=== PATIENT | female | born 1990 | race Caucasian/White ===

== ENCOUNTER → 2018-04-09 07:54 | Outpatient (CLI) | payer OTHER, SELFPAY ==
[2018-04-12 18:09] LABS: HPV Reflexed? NOT INDICATED
== END ==
PROVIDERS: Visit Provider Obstetrics & Gynecology
DX: Z12.4 Encounter for screening for malignant neoplasm of cervix (principal)
CPT/HCPCS: 88175; G0145

== ENCOUNTER → 2018-05-24 16:39 | Outpatient (CLI) | payer OTHER, SELFPAY ==
[2018-05-24 19:31] LABS: Chlamydia Trachomatis by PCR Negative (Negative); Neisserai gonorrhoeae by PCR Negative (Negative); Probe Check PASS; Sample Adequacy Control PASS; Specimen Processing Control PASS
== END ==
PROVIDERS: Referring Provider Obstetrics & Gynecology; Visit Provider Obstetrics & Gynecology
DX: Z11.3 Encounter for screening for infections with a predominantly sexual mode of transmission (principal)
CPT/HCPCS: 87491; 87591

== ENCOUNTER → 2018-06-20 16:14 | Outpatient (CLI) | payer OTHER, SELFPAY | PROVIDERS: Visit Provider Obstetrics & Gynecology | DX: O31.1 Continuing pregnancy after spontaneous abortion of one fetus or more (principal); Z3A.00 Weeks of gestation of pregnancy not specified | CPT/HCPCS: 36415; 86900 ==

== ENCOUNTER → 2019-05-06 | Outpatient (CLI) | payer OTHER, SELFPAY ==
[2019-05-06 19:51] LABS: Chlamydia Trachomatis by PCR Negative (Negative); Neisserai gonorrhoeae by PCR Negative (Negative); Probe Check PASS; Sample Adequacy Control PASS; Specimen Processing Control PASS
== END | disposition home or self-care (01) ==
LOC: LABSPEC 16:01
PROVIDERS: Visit Provider Advanced Practice Midwife
DX: Z34.81 Encounter for supervision of other normal pregnancy, first trimester (principal)
CPT/HCPCS: 87491; 87591

== ENCOUNTER → 2019-05-22 | Outpatient (CLI) | payer OTHER, SELFPAY ==
[2019-05-22 17:17] LABS: Absolute Lymphocyte Count 2.16 X10^3/uL (0.83-4.51); Basophil# 0.02 X10^3/uL; Basophil% 0.3 % (0-1); Eosinophil# 0.06 X10^3/uL; Eosinophils% 0.8 % (0-5); Hematocrit 37.9 % (37-47); Hemoglobin 12.9 g/dL (12.0-15.0); Lymphocyte # 2.16 X10^3/ul (4.0); Lymphocyte % 27.3 % (19-41); Mean Corpuscular Hgb 31.5 pg (27.0-32.0); Mean Corpuscular Volume 92.4 fL (81-99); Mean Platelet Vol. 9.9 fl (6.2-12.0); Monocyte% 7.6 % (0-10); NRBC Flagged by Analyzer 0 % (0-5); Neutrophil # 5.04 X10^3/uL (2.7-7.7); Neutrophil % 63.5 % (47-70); Platelet Count 255 K/mm3 (150-450); RBC Distribution Width CV 11.8 % (11.6-14.6); RBC Distribution Width SD 39.7 fl (35.1-43.9); White Blood Count 7.9 K/mm3 (4.4-11.0)
[2019-05-22 17:43] LABS: Amphetamine Urine VISTA NEGATIVE (<1000 ng/mL); Barbiturate Urine VISTA NEGATIVE (< 200 ng/mL); Benzodiazepine Urine VISTA NEGATIVE (< 200 ng/mL); Cocaine Urine VISTA NEGATIVE (< 300 ng/mL); Ecstacy Urine VISTA NEGATIVE (< 500 ng/mL); Methadone Urine VISTA NEGATIVE (< 300 ng/mL); PCP Urine VISTA NEGATIVE (< 25 ng/mL); THC Urine VISTA NEGATIVE (< 50 ng/mL); Vista UDS pH Range 7
[2019-05-22 17:54] LABS: Color, Urine Yellow (Yellow); Glucose, Dipstick Normal (Normal); Ketone-Dipstick Negative (Negative); Leukocyte Esterase-Dipstick Negative /ul (Negative); Nitrite-Dipstick Negative (Negative); Occult Blood-Urine Negative /ul (Negative); Protein-Dipstick Negative (Negative); Specific Gravity, Urine 1.005 (1.002-1.030); Urine Bilirubin Dipstick Negative (Negative); Urine Clarity Sl. Cloudy (Clear); Urine Urobilinogen Normal (Normal)
[2019-05-23 02:41] LABS: Prenatal RPR NONREACTIVE (NONREACTIVE)
[2019-05-23 09:14] LABS: HIV - WCH Non-Reactive (Nonreactive); Hepatitis B Surface Antigen Non-Reactive (Nonreactive); Hepatitis C Antibody Non-Reactive (Nonreactive); Rubella IgG 141.2 IU/mL
[2019-05-24 00:10] LABS: Vitamin D,25 Hydroxy 22.9 ng/mL (29.95-100.01)
[2019-05-26 13:43] LABS: V-Zoster IgG (Immunity) < 135 index (Immune >165)
== END | disposition home or self-care (01) ==
LOC: WOBLAB 15:55
PROVIDERS: Visit Provider Advanced Practice Midwife
DX: Z34.81 Encounter for supervision of other normal pregnancy, first trimester (principal)
CPT/HCPCS: 36415; 80307; 81002; 82306; 84443; 85025; 86703; 86762; 86787; 86803; 87340

== ENCOUNTER → 2019-09-15 09:01 | Outpatient (CLI) | payer BC, SELFPAY ==
[2019-09-15 11:10] LABS: Glucose Challenge Gest 1H 50g 88 mg/dL (70-140)
[2019-09-15 11:21] LABS: Hemoglobin 11.3 g/dL (12.0-15.0); Mean Corp Hgb Conc 33.2 g/dL (32-36); Mean Corpuscular Hgb 31.9 pg (27.0-32.0); Mean Platelet Vol. 9.3 fl (6.2-12.0); Platelet Count 240 K/mm3 (150-450); RBC Distribution Width CV 12.1 % (11.6-14.6); RBC Distribution Width SD 42.5 fl (35.1-43.9); Red Blood Count 3.54 M/mm3 (4.2-5.4); White Blood Count 8.7 K/mm3 (4.4-11.0)
[2019-09-15 11:24] LABS: Vitamin D,25 Hydroxy 25.6 ng/mL (29.95-100.01)
== END ==
PROVIDERS: Visit Provider Advanced Practice Midwife
DX: Z34.82 Encounter for supervision of other normal pregnancy, second trimester (principal)
CPT/HCPCS: 36415; 82306; 82950; 85027; 86850

== ENCOUNTER → 2019-11-12 15:25 | Outpatient (CLI) | payer BC, SELFPAY | PROVIDERS: PCP Physician Assistant; Visit Provider Obstetrics & Gynecology | DX: Z36.85 Encounter for antenatal screening for Streptococcus B (principal) | CPT/HCPCS: 87081 ==

== ENCOUNTER 2019-12-11 11:20 | Inpatient (IN) | payer BC, SELFPAY ==
[2019-12-11] VITALS (28 sets, daily range): BP systolic 111–158; BP diastolic 63–95; PULSE 70–111; RESP 16–18; TEMP 36.1–37.7; O2SAT 91–100; BMI 26.1
[2019-12-11 11:19] LABS: ROM Internal Control Test YES-OK TO RESULT pt. (Internal QC)
[2019-12-11 11:21] LABS: ROM Patient Test POSITIVE (Negative)
[2019-12-11] MEDS: Lactated Ringers 1,000 ML 50 ML IV (12:00)
--- NOTE | 2019-12-11 12:23 | PCM.HP.OB ---
- Problem List (1) 40 weeks gestation of Status: Acute (2) Spontaneous rupture of amniotic membranes Status: Acute History Date of Admission: 12/11/19 Final YAZMIN: 12/10/19 Final YAZMIN Source: US <20 weeks Gestational age: 40 Weeks and 1 Days History of this : This is a 29 year-old, G [2], P [0], at 40 weeks gestational age. Allergies No Known Allergies Allergy (Verified 12/11/19 11:02) Home Medications: Home Medications Vits [Prenatabs FA] 1 tab PO DAILY 12/11/19 Smoking Status: Never smoker Alcohol: None Number of Fetus(es): 1 NST - FHR Rate Baby A Baseline: 130 Variability:: Moderate Accelerations:: 15 x 15 Decelerations:: None NST Reactive:: Yes FHR Category:: Category I Uterine Activity:: irregular Q5-7m History Past Pregnancies: PRIOR DELIVERY HISTORY DEL DATE GEST LAB WT LB WT OZ TYPE ANES LABOR [place] Jul 07 9 0 0 0 Sab None No Labs: Mom's Labs & Results 12/11/19 12/11/19 12/11/19 10:57 12:00 12:00 WBC Pending RBC Pending Hgb Pending Hct Pending MCV Pending MCH Pending MCHC Pending RDW Std Deviation Pending RDW Coeff of Annabella Pending Plt Count Pending Neut % (Auto) Pending Absolute Neuts (auto) Pending Vag Amniotic Fld Detect POSITIVE H Blood Type Pending Antibody Screen Pending Course Did the patient receive Yes care? Labs Blood Type: A RH: NEGATIVE RPR/VDRL/Syphilis Nonreactive Rubella status Immune HbSAg Negative Date Done: 05/22/19 Chlamydia Negative Gonorrhea Negative HIV/AIDS Non-Reactive Group B Strep: Negative Current Obstetrical History Gestational Diabetes No Incompetent Cervix No Infertility No IUGR No Macrosomia No Hypertension/Pre-eclampsia No Placenta Previa/Abruption No PTL/PROM No Uterine anomaly No Oligohydramnios No Polyhydramnios No Multiple gestation No Past Medical History Asthma No Diabetes No Hypertension No Heart disease No Mitral valve prolapse No Neurologic/Seizure disorder/ No Migraines Kidney disease No Liver disease No Varicosities No Clotting disorders/Hx of DVT No Thyroid Dysfunction No Other medical diseases No Psychiatric disorders No Major trauma No Abnormal PAP smear No Sleep apnea No Mammogram in the last 2 years No Social History Marital Status: Alleged father Elijah Mendoza Hx Smoking No Smoking Status Never smoker Expected Infant Delivery Method: Spontaneous Vaginal Number of Visits: 13 Review of Systems Constitutional: Denies: Chills, Fever, Weight Change HEENT: Denies: Head Aches, Sinus Congestion, Sinus Drainage Cardiovascular: Denies: Chest Pain, Palpitations Respiratory: Denies: Cough, Shortness of breath at rest, Sputum production Gastrointestinal: Denies: Abdominal Pain, Nausea, Vomiting Genitourinary: Denies: Dysuria Musculoskeletal: Denies: Joint Pain, Joint Tenderness Skin: Denies: Rash, Wounds Neurological: Denies: Numbness, Tingling, Focal weakness Psychiatric: Denies: Anxiety, Depression, Homicidal Ideations, Suicidal Ideations Hematologic/ Lymphatic: Denies: Easy Bruising, Easy Bleeding Physical Exam Vitals: Vital Signs Temp Pulse BP 97.9 F 100 127/86 H 12/11/19 10:48 12/11/19 11:13 12/11/19 11:13 General: Alert, Oriented x3, No apparent distress HEENT: Atraumatic, Normocephalic. Negative for: Thyromegaly, Lymphadenopathy Cardiovascular: Regular rate, Regular Rhythm Lungs: Clear to auscultation Abdomen: Bowel Sounds Present, Gravid Neurological: Deep Tendon Reflexes 2+/4 and Symmetrical, Neuro grossly intact TOPOGRAPHICAL ENGINEER: Normal external genitalia. Negative for: Vulvar lesions Estimated gestational size: Appropriate for gestational size Presentation: Cephalic Cervix Dilation (cm): 1 - per RN Station: -2 Effacement (%): 80 Assessment/Plan All Active Problems 40 weeks gestation of (Acute) Spontaneous rupture of amniotic membranes (Acute) A/P: This is a 29 year-old, G [2], P [0], at 40 weeks gestational age. SROM this am at 0900, clear fluid. ROM+ SVE /-2 with irregular UC Q5-7 minutes Category I NST reactive Will recheck SVE. If no cervical change within 6 hours of SROM, will need to start augmentation Epidural planned for pain management Expect
[2019-12-11 12:47] LABS: Absolute Lymphocyte Count 1.41 X10^3/uL (0.83-4.51); Absolute Neutrophil Count 7.1 X10^3/uL (2.0-7.7); Basophil# 0.02 X10^3/uL; Basophil% 0.2 % (0-1); Eosinophil# 0.01 X10^3/uL; Eosinophils% 0.1 % (0-5); Hematocrit 37.4 % (37-47); Hemoglobin 12.9 g/dL (12.0-15.0); Lymphocyte # 1.41 X10^3/ul (4.0); Lymphocyte % 15.6 % (19-41); Mean Corp Hgb Conc 34.5 g/dL (32-36); Mean Corpuscular Hgb 32.7 pg (27.0-32.0); Mean Corpuscular Volume 94.9 fL (81-99); Mean Platelet Vol. 10.2 fl (6.2-12.0); Monocyte# 0.49 X10^3/uL; Monocyte% 5.4 % (0-10); NRBC Flagged by Analyzer 0 % (0-5); Neutrophil # 7.05 X10^3/uL (2.7-7.7); Neutrophil % 78.1 % (47-70); Platelet Count 237 K/mm3 (150-450); RBC Distribution Width CV 11.9 % (11.6-14.6); RBC Distribution Width SD 40.9 fl (35.1-43.9); Red Blood Count 3.94 M/mm3 (4.2-5.4)
--- NOTE | 2019-12-11 12:59 | PCM.PN.BLA ---
Progress Note LABOR PROGRESS Has mild contractions. AVSS GEN - NAD, AAO x 3 FHR 140, moderate variability, + accelerations, no decelerations TOCO 2-3/10 min SVE deferred, recent exam /-3 A/P: 29yo @ 40 1/7wga with SROM in latent labor, Cat I FHR -L&D related risks and procedures reviewed. Consents signed. -Discussed r/b pitocin augmentation versus expectant management, opts for pitocin. Will start - and maternal statuses reassuring STROKE Vital Signs/Narrative: Vital Signs Temp Pulse BP 12/11/19 12:33 95 132/87 H 12/11/19 12:30 97.7 F L 12/11/19 11:13 100 127/86 H 12/11/19 10:48 97.9 F 111 H 145/92 H
[2019-12-11] MEDS: Oxytocin 30 units/NS 500 ml 30 UNITS/500 ML IV.SOLN IV (13:39)
[2019-12-11] MEDS: Lactated Ringers 500 ML 999 ML IV (15:05)
--- NOTE | 2019-12-11 15:14 | PCM.PN.OB ---
Patient Problems: Active and Suspected Problems 40 weeks gestation of (Acute) Spontaneous rupture of amniotic membranes (Acute) Subjective: Feeling okay in between contractions, with contractions lots of pain. Requesting epidural now. Objective: VSS. Breathing and rocking through contractions. - Physical Exam Vitals/I&O's: Vital Signs Temp Pulse BP Pulse Ox 97.5 F L 98 137/90 H 97 12/11/19 14:25 12/11/19 14:29 12/11/19 14:29 12/11/19 14:28 Weight: 73.5 kg Body Mass Index (BMI) 26.1 Intake and Output for Last 24 Hours 12/09/19 12/10/19 12/11/19 23:59 23:59 23:59 Intake Total 1.87 / 1.87 Balance 1.87 / 1.87 General: Alert, Oriented x3, Cooperative HEENT: Atraumatic, PERRLA, EOMI, Normocephalic Neck: Supple, No JVD, Negative Carotid Bruits Lungs: Clear to auscultation, Normal air movement Cardiovascular: Regular rate, No murmurs Abdomen: Bowel Sounds Present, Soft, Non Tender Extremities: No edema, Capillary Refill Less than 3 Seconds Skin: No rashes, No breakdown Musculoskeletal: No Tenderness to Palpation of Joints or Extremities Neurological: Cranial nerves II-XII grossly intact Psych/Mental Status: Normal Affect, Appropriate Laboratory Results 12/11/19 10:57: Vag Amniotic Fld Detect POSITIVE H 12/11/19 12:00: WBC 9.0, RBC 3.94 L, Hgb 12.9, Hct 37.4, MCV 94.9, MCH 32.7 H, MCHC 34.5, RDW Std Deviation 40.9, RDW Coeff of Annabella 11.9, Plt Count 237, MPV 10.2, Immature Gran % (Auto) 0.600, Neut % (Auto) 78.1 H, Lymph % (Auto) 15.6 L, [place] % (Auto) 5.4, Eos % (Auto) 0.1, Baso % (Auto) 0.2, Absolute Neuts (auto) 7.1, Absolute Lymphs (auto) 1.41, Nucleated RBC % 0 12/11/19 12:00: Blood Type A NEGATIVE, Antibody Screen NEGATIVE Current Medications Acetaminophen (Tylenol) 325 - 650 mg PO Q4H PRN PRN PRN Reason: Pain Score 1-3/10 Al Hydroxide/Mg Hydroxide (Mylanta Ii) 15 - 30 ml PO Q4H PRN PRN PRN Reason: INDIGESTION Citric Acid/Sodium Citrate (Bicitra) 30 ml PO X1 PRN PRN Reason: Section Fentanyl Citrate (Sublimaze (100mcg Ampule)) 25 - 50 mcg IV Q2H PRN PRN PRN Reason: Pain Score 4-10/10 Lactated Ringer's () 500 mls @ 999 mls/hr IV .Q31M PRN PRN Reason: Epidural Lactated Ringer's () 500 mls @ 999 mls/hr IV .Q31M PRN PRN Reason: Corrective Measures Lactated Ringer's () 1,000 mls @ 50 mls/hr IV .Q20H [facility] Last Admin: 12/11/19 12:00 Dose: 50 mls/hr Documented by: Oxytocin/Sodium Chloride () 30 units in 500 mls @ 2 mls/hr IV .Q250H [facility] Last Infusion: 12/11/19 14:35 Dose: 4 mls/hr Documented by: Ondansetron HCl (Zofran) 4 mg IV Q4H PRN PRN PRN Reason: NAUSEA Prochlorperazine Edisylate (Compazine Iv) 10 mg IV Q6H PRN PRN PRN Reason: NAUSEA Sodium Chloride () 10 - 40 ml IV X1 PRN PRN Reason: SALINE FLUSH Medical Necessity - Tobacco Use Smoking Status: Never smoker Assessment/Plan All Active Problems 40 weeks gestation of (Acute) Spontaneous rupture of amniotic membranes (Acute) A/P: with SROM at 0900 Rocking and breathing through contractions, asking for an epidural SVE ft/25/-2 internal OS with external OS 1.5/80/-2 Epidural process started, when comfortable with reassess SVE On Pitocin 2u, may use curtis bulb if not dilating further Expect
[2019-12-11] MEDS: fentaNYL-bupivacaine (epidural) 100 ML BAG EPIDURAL (15:50)
--- NOTE | 2019-12-11 17:25 | PN_ITS ---
Progress Note S: States very comfortable now with no pain or pressure O: VSS FHR baselione 130, +accels, variables, moderate variability UC Q2-5 minutes SVE 6/90/-1 with forebag A: SROM forebag with heavy meconium Active labor Category II NST P: Update physical plant manager Continue labor Expect STROKE Vital Signs/Narrative: Vital Signs Temp Pulse BP Pulse Ox 12/11/19 16:11 88 129/64 H 12/11/19 16:07 93 144/85 H 99 12/11/19 16:02 91 158/91 H 99 12/11/19 15:57 86 144/84 H 99 12/11/19 15:52 90 137/86 H 100 12/11/19 14:29 98 137/90 H 12/11/19 14:28 83 97 12/11/19 14:26 94 145/95 H 12/11/19 14:25 97.5 F L 12/11/19 13:37 90 139/80 H 99
--- NOTE | 2019-12-11 18:05 | PCM.PN.BLA ---
Progress Note Per call from RN at 1759 S: No pain, coping well O: Per milling machine set up operator, breech presentation SVE 10/100/+1 A: FHR Category I NST P: CNM to unit Have ultrasound in the room Dr. Piedra called with possible breech presentation STROKE Vital Signs/Narrative: Vital Signs Temp Pulse BP Pulse Ox 12/11/19 17:53 71 91 12/11/19 17:52 70 111/63 12/11/19 17:51 97.3 F L 12/11/19 16:11 88 129/64 H 12/11/19 16:07 93 144/85 H 99 12/11/19 16:02 91 158/91 H 99 12/11/19 15:57 86 144/84 H 99 12/11/19 15:52 90 137/86 H 100
[2019-12-11] MEDS: Sodium Citrate/Citric Acid 30 ML UDC PO (18:20)
[2019-12-11] MEDS: Cefazolin 2 GM in 0.9% Normal Saline 100 ML IV (18:20)
--- NOTE | 2019-12-11 19:17 | PCM.OPRPT ---
Delivery Classification: STPEHANIE Final YAZMIN: 12/10/19 Final YAZMIN Source: US <20 weeks Gestational age: 40 Weeks and 1 Days doctor who attended delivery (if requested by OB): Ernestina Wilson - Mec Stained Fluid solar hot water installer: Rafael - Oly Weinberg RN solar hot water installer: Opal Ulloa Type of Anesthesia:: Epidural - With Duramorph Date of Procedure: 12/11/19 Pre-Operative Diagnosis: Breech Presentation in Labor Post-Operative Diagnosis: Breech Presentation in Labor Indications for : Breech Description of Procedure: Surgeon: Sathish Piedra MD, FACOG Anesthesia: Stefanie Arvizu CRNA Anesthesia: Epidural with Duramorph Pre-op Diagnosis: Breech Presentation in Labor Post-Op Diagnosis: Breech Presentation in Labor Procedure: Primary low Transverse Cervical Caesarean Section Findings: Viable female with Apgars of 8/9 in fredo breech presentation with meconium stained amniotic fluid and normal three-vessel placenta. Cord was around the neck loosely. Indication: This is a 29-year-old who presents who presented in active labor at 40 weeks gestation. care has otherwise been uneventful. The patient progressed to complete and at this point it was discovered that the baby was in breech presentation. We immediately prepared the patient for section and discussed the procedure briefly with the patient and her spouse including the risks and benefits. All questions were answered. Procedure: Patient was taken to the operating room where after epidural catheter anesthesia was redosed, the patient was prepped and draped in usual sterile fashion;; a Khan catheter had been previously placed. The abdomen was entered through a Pfannenstiel incision and peritoneum was entered bluntly. After developing a bladder flap on the lower uterine segment a low transverse incision was made on the uterus and breech was easily delivered onto the operative field the nose mouth and oropharynx were eventually bulb suctioned. Subsequently a viable female was born with Apgars of 8/9. The was noted to cry move all extremities vigorously on the operative field. The umbilical cord was doubly clamped and ligated and infant handed to the nursery personnel who were present for the delivery. Placenta was delivered and noted to be 3 vessels and normal. Uterus was exteriorized and remaining placental tissue was removed. The uterus was then closed in 2 layers first with running locked 0 Vicryl suture followed by a second imbricating layer with 0 Vicryl suture. 0 Vicryl suture was then used in a horizontal mattress interrupted fashion to affect final hemostasis of the uterine incision line. Normal fallopian tubes and ovaries were visualized and the uterus was returned to the pelvis. Hemostasis was noted and rectus abdominis muscles were reapproximated in the midline with interrupted Number 0 Vicryl suture in a horizontal mattress fashion. Fascia was closed with running Number 1 PDS Strata fix suture. Subcutaneous tissue was irrigated with copious amounts of saline solution and then closed with running 3-0 Vicryl suture. Skin was closed with 4-0 monocryl suture in a running subcuticular fashion. Steri strips and Mepilex dressing were placed across the incision. The patient tolerated the procedure well and was taken to the recovery room in satisfactory condition. Sponge, needle, and instrument counts were all reportedly correct. EBL was less than 500 cc. Ancef 2 gms IV was given prior to the procedure. arterial blood gases were collected. Amniotic Fluid Description: Moderate meconium Placenta Disposition: [facility] Drain: Khan to straight drain Fluids Replaced: Crystalloid Cord Entanglement: Around neck x 1, loose Cord Vessel Description: 3 Vessels Esitmated Blood Loss (ml): 500 cc Infant Gender: Female (1 minute): 8 (5 minute): 9 Antibiotic Given: Ancef 2 grams IV x1 Complications: None - Admit VTE Documentation VTE Present on Admission: Yes VTE Mechan Device Prophylaxis: SCD's
--- NOTE | 2019-12-11 19:27 | DCINST_ITS ---
Discharge Diet: No Restrictions Discharge Activity: May not drive while taking narcotic pain medications., May Shower, May Take a Tub Bath May resume sexual activity in: 4-6 weeks Lifting Restrictions: 20 pounds Additional Activity Instructions:: Nothing in the vagina for 4-6 weeks. You may return to work/school in 6 weeks. Call your doctor if your incision/area has: Continuous Slow Oozing, Sudden Increased Bleeding, Increased Pain/ Swelling, Increased Redness, Foul Smelling Discharge Call your doctor if you observe: Fever of 101 or Higher, Inability to urinate, Inability to have a bowel movement, Using more than one pad per hour Additional Instructions: If you experience any of the following, contact your healthcare provider. * Bleeding that soaks a pad every hour for 2 hours * Unrelieved incision or abdominal pain * Swelling, redness, discharge or bleeding from your incision or episiotomy site * Your incision begins to separate * Problems urinating (including inability to urinate or burning while urinating). * Visual changes * Severe headache * Flu-like symptoms * Pain or redness in one of both of your breasts * Pain, warmth, tenderness or swelling in your legs, especially the calf area * Frequent nausea and vomiting * Symptoms of depression or anxiety If you experience any of the following, call 911 or go to the nearest Emergency Room. * Chest pain * Problems breathing * Seizure activity * Partial or complete paralysis of a body part, slurred speech, weakness or drooping of the face, or a sudden inability to walk or hold your balance Allergies/Adverse Reactions: Allergies No Known Allergies Allergy (Verified 12/11/19 11:02) Medications to take at Discharge Docusate Sodium [Colace] 100 mg PO BID PRN PRN #60 capsule 12/11/19 Oxycodone [Oxyir] 5 mg PO Q6H PRN PRN 7 Days #20 tablet 12/11/19 Vits [Prenatabs FA] 1 tab PO DAILY 12/11/19 The following prescriptions were given: Docusate Sodium [Colace] 100 mg PO BID PRN PRN #60 capsule PRN Reason: Constipation Oxycodone [Oxyir] 5 mg PO Q6H PRN PRN 7 Days #20 tablet PRN Reason: Pain Score 6-10/10 Follow-Up: Call to make an appointment with your doctor for an incision check in 1-2 weeks. You will also need a 6 week post- follow up appointment. Test results from this visit will be discussed in further detail at your follow- up appointment, if applicable. Please Follow Up With: Sathish Piedra MD - [phone] When: Call to make an appointment for an incision check in 2 weeks. Primary Care Physician: Pinky Pabon PA [Primary Care Provider] -
[2019-12-11] MEDS: Oxytocin 30 units/NS 500 ml 30 UNITS/500 ML IV.SOLN 167 UNITS IV (19:45)
[2019-12-11] MEDS: Lactated Ringers 1,000 ML 100 ML IV (22:41)
[2019-12-12] VITALS (10 sets, daily range): BP systolic 112–130; BP diastolic 54–83; PULSE 67–90; RESP 16–18; TEMP 36.9–37.7; O2SAT 95–100
[2019-12-12] MEDS: Ketorolac 30 MG/ML Syringe IV ×4 (01:38→19:49)
[2019-12-12] MEDS: Cefazolin 1 GM/50 ML BAG IV ×2 (01:43→10:36)
[2019-12-12] MEDS: 0.9% Saline Lock 10 ML Syringe IV ×3 (03:45→19:49)
[2019-12-12 05:23] LABS: Hematocrit 30.3 % (37-47); Hemoglobin 10.5 g/dL (12.0-15.0); Mean Corp Hgb Conc 34.7 g/dL (32-36); Mean Corpuscular Hgb 32.3 pg (27.0-32.0); Mean Corpuscular Volume 93.2 fL (81-99); Mean Platelet Vol. 10.5 fl (6.2-12.0); Platelet Count 170 K/mm3 (150-450); Red Blood Count 3.25 M/mm3 (4.2-5.4)
--- NOTE | 2019-12-12 09:08 | PCM.PN.OB ---
Patient Problems: Active and Suspected Problems 40 weeks gestation of (Acute) Spontaneous rupture of amniotic membranes (Acute) Subjective: No issues overnight. Feeling well. She is sore, but pain controlled. Passing flatus. Denies heavy lochia. No nausea or vomiting. She is . Objective: AVSS - Physical Exam Vitals/I&O's: Vital Signs Temp Pulse Resp BP Pulse Ox 98.4 F 83 16 112/54 L 99 12/12/19 08:30 12/12/19 08:30 12/12/19 08:30 12/12/19 08:30 12/12/19 06:20 Oxygen Delivery Method Room Air Weight: 73.5 kg Body Mass Index (BMI) 26.1 Intake and Output for Last 24 Hours 12/10/19 12/11/19 12/12/19 23:59 23:59 23:59 Intake Total 1698.19 / 1698.19 2848.33 / 2848.33 Output Total 1025 / 1025 1775 / 1775 Balance 673.19 / 673.19 1073.33 / 1073.33 General: Alert, Oriented x3, Cooperative, No apparent distress HEENT: Atraumatic, Normocephalic Lungs: Clear to auscultation, Normal air movement Cardiovascular: Regular rate, Regular Rhythm, Normal S1, Normal S2 Abdomen: Soft, Non Tender, Non-Distended, - - Fundus firm and nontender, incisional dressing c/d/i with small <1cm area of saturation without expansion Extremities: No edema, No Calf Tenderness - '/; Neurological: Neuro grossly intact Psych/Mental Status: Normal Affect, Appropriate, Alert and oriented to time, place, person, mood and affect Laboratory Results 12/11/19 10:57: Vag Amniotic Fld Detect POSITIVE H 12/11/19 12:00: WBC 9.0, RBC 3.94 L, Hgb 12.9, Hct 37.4, MCV 94.9, MCH 32.7 H, MCHC 34.5, RDW Std Deviation 40.9, RDW Coeff of Annabella 11.9, Plt Count 237, MPV 10.2, Immature Gran % (Auto) 0.600, Neut % (Auto) 78.1 H, Lymph % (Auto) 15.6 L, [place] % (Auto) 5.4, Eos % (Auto) 0.1, Baso % (Auto) 0.2, Absolute Neuts (auto) 7.1, Absolute Lymphs (auto) 1.41, Nucleated RBC % 0 12/11/19 12:00: Blood Type A NEGATIVE, Antibody Screen NEGATIVE 12/12/19 04:50: WBC 13.0 H, RBC 3.25 L, Hgb 10.5 L, Hct 30.3 L, MCV 93.2, MCH 32.3 H, MCHC 34.7, RDW Std Deviation 41.0, RDW Coeff of Annabella 12.0, Plt Count 170, MPV 10.5 12/12/19 04:50: Screen NEGATIVE, Baby's Blood Type A POSITIVE, Baby's NAILA NEGATIVE Current Medications Acetaminophen (Tylenol) 1,000 mg PO Q8H PRN PRN PRN Reason: Pain Score 1-3/10;Temp>99.6F Bisacodyl (Dulcolax) 10 mg RECTAL UD PRN PRN Reason: If no BM Diphenhydramine HCl (Benadryl) 25 mg PO Q6H PRN PRN PRN Reason: ITCHING Stop: 12/12/19 20:39 Hydrocortisone (Hytone) 1 applic TOPICAL TID PRN PRN; Protocol PRN Reason: Discomfort Hydromorphone HCl (Dilaudid Inj) 0.5 - 1.5 mg IV Q3H PRN PRN PRN Reason: Pain Score 4-10/10 Stop: 12/12/19 18:34 Cefazolin Sodium () 1 gm in 50 mls @ 150 mls/hr IV Q8H [facility] Stop: 12/12/19 10:19 Last Infusion: 12/12/19 02:03 Dose: Infused Documented by: Lactated Ringer's () 1,000 mls @ 100 mls/hr IV .Q10H [facility] Last Infusion: 12/12/19 07:32 Dose: Infused Documented by: Naloxone HCl 4 mg/ Dextrose 504 mls @ 0 mls/hr IV .Q0M PRN; Protocol PRN Reason: Respiratory depression Ketorolac Tromethamine (Toradol (Bkc)) 30 mg IV Q6H [facility] Stop: 12/13/19 19:01 Last Admin: 12/12/19 06:50 Dose: 30 mg Documented by: Methylergonovine Maleate (Methergine) 0.2 mg IM X1 PRN PRN Reason: Uterine Atony Naloxone HCl (Narcan) 0.02 mg IV Q1M PRN PRN Reason: RR <10 and pt unresponsive Naproxen (Naprosyn) 250 - 500 mg PO Q8H PRN PRN PRN Reason: Pain Score 1-3/10 Ondansetron HCl (Zofran) 4 mg IV Q4H PRN PRN PRN Reason: Nausea Oxycodone HCl (Oxyir) 5 - 10 mg PO Q4H PRN PRN PRN Reason: Pain Score 4-10/10 Prochlorperazine Edisylate (Compazine Iv) 10 mg IV Q6H PRN PRN PRN Reason: NAUSEA Senna/Docusate Sodium (Senokot-S, Zehra-Colace) 0 tablet PO DAILY PRN PRN Reason: Constipation Simethicone (Mylicon) 80 mg PO PCHS PRN PRN Reason: Indigestion/stomach pain Sodium Chloride () 5 - 15 ml IV UD PRN PRN Reason: SALINE FLUSH Last Admin: 12/12/19 06:50 Dose: 10 ml Documented by: Zolpidem Tartrate (Ambien (Generic)) 5 mg ORAL QHS PRN PRN PRN Reason: Insomnia Medical Necessity - Tobacco Use Smoking Status: Never smoker Assessment/Plan All Active Problems 40 weeks gestation of (Acute) Spontaneous rupture of amniotic membranes (Acute) 29yo P1 POD#1 s/p PLTCS doing well. -A neg, Infant Rh pos - for Rhogam -Routine postop care -
[2019-12-13] MEDS: 0.9% Saline Lock 10 ML Syringe IV ×3 (01:24→13:38)
[2019-12-13] MEDS: Ketorolac 30 MG/ML Syringe IV ×3 (01:24→13:37)
[2019-12-13 01:27] VITALS: BP 130/79; PULSE 78; RESP 16; TEMP 37.1
[2019-12-13 09:00] VITALS: BP 132/86; PULSE 74; RESP 16; TEMP 36.9
--- NOTE | 2019-12-13 11:29 | PCM.PN.OB ---
Patient Problems: Active and Suspected Problems 40 weeks gestation of (Acute) Spontaneous rupture of amniotic membranes (Acute) Subjective: Reports cramping and being sore if not taking IV pain medication when it is due. Denies heavy bleeding. Reports wanting to go home today. Objective: VSS. Fundus, firm, midline, u/1. well. Incision CDI - Physical Exam Vitals/I&O's: Vital Signs Temp Pulse Resp BP Pulse Ox 98.4 F 74 16 132/86 H 99 12/13/19 09:00 12/13/19 09:00 12/13/19 09:00 12/13/19 09:00 12/12/19 19:53 Oxygen Delivery Method Room Air Weight: 73.5 kg Body Mass Index (BMI) 26.1 Intake and Output for Last 24 Hours 12/11/19 12/12/19 12/13/19 23:59 23:59 23:59 Intake Total 1698.19 / 1698.19 2898.33 / 2898.33 Output Total 1025 / 1025 1775 / 1775 Balance 673.19 / 673.19 1123.33 / 1123.33 General: Alert, Oriented x3, Cooperative HEENT: Atraumatic, PERRLA, EOMI, Normocephalic Neck: Supple, No JVD, Negative Carotid Bruits Lungs: Clear to auscultation, Normal air movement Cardiovascular: Regular rate, No murmurs Abdomen: Bowel Sounds Present, Soft, Non Tender, Passing Flatus Extremities: No edema, Capillary Refill Less than 3 Seconds Skin: No rashes, No breakdown, Incision - CDI Musculoskeletal: No Tenderness to Palpation of Joints or Extremities Neurological: Cranial nerves II-XII grossly intact Psych/Mental Status: Normal Affect, Appropriate Current Medications Acetaminophen (Tylenol) 1,000 mg PO Q8H PRN PRN PRN Reason: Pain Score 1-3/10;Temp>99.6F Bisacodyl (Dulcolax) 10 mg RECTAL UD PRN PRN Reason: If no BM Hydrocortisone (Hytone) 1 applic TOPICAL TID PRN PRN; Protocol PRN Reason: Discomfort Naloxone HCl 4 mg/ Dextrose 504 mls @ 0 mls/hr IV .Q0M PRN; Protocol PRN Reason: Respiratory depression Ketorolac Tromethamine (Toradol (Bkc)) 30 mg IV Q6H [facility] Stop: 12/13/19 19:01 Last Admin: 12/13/19 07:54 Dose: 30 mg Documented by: Methylergonovine Maleate (Methergine) 0.2 mg IM X1 PRN PRN Reason: Uterine Atony Naloxone HCl (Narcan) 0.02 mg IV Q1M PRN PRN Reason: RR <10 and pt unresponsive Naproxen (Naprosyn) 250 - 500 mg PO Q8H PRN PRN PRN Reason: Pain Score 1-3/10 Ondansetron HCl (Zofran) 4 mg IV Q4H PRN PRN PRN Reason: Nausea Oxycodone HCl (Oxyir) 5 - 10 mg PO Q4H PRN PRN PRN Reason: Pain Score 4-10/10 Prochlorperazine Edisylate (Compazine Iv) 10 mg IV Q6H PRN PRN PRN Reason: NAUSEA Senna/Docusate Sodium (Senokot-S, Zehra-Colace) 0 tablet PO DAILY PRN PRN Reason: Constipation Simethicone (Mylicon) 80 mg PO PCHS PRN PRN Reason: Indigestion/stomach pain Sodium Chloride () 5 - 15 ml IV UD PRN PRN Reason: SALINE FLUSH Last Admin: 12/13/19 07:54 Dose: 10 ml Documented by: Zolpidem Tartrate (Ambien (Generic)) 5 mg ORAL QHS PRN PRN PRN Reason: Insomnia Medical Necessity - Tobacco Use Smoking Status: Never smoker Assessment/Plan All Active Problems 40 weeks gestation of (Acute) Spontaneous rupture of amniotic membranes (Acute) 29yo P1 POD#2 s/p PLTCS doing well. -A neg, Rh pos - for Rhogam -Routine postop care - -Next dose of pain medication to be oral. If pain well controlled may discharge today -Understands when to take op dressing off and to call for incision check
[2019-12-13] MEDS: oxyCODONE 5 MG Tablet PO (11:47)
[2019-12-13 13:00] VITALS: BP 144/83; PULSE 88; RESP 12; TEMP 37.5
[2019-12-13] MEDS: Senna/Docusate Sodium 1 Tablet PO (13:45)
--- NOTE | 2019-12-13 15:41 | NURSING ---
1430States she wants to go home and feels able to care for herself and her baby. Discharged in wheelchair to car with infant in lap in car seat.
== END 2019-12-13 14:30 | disposition home or self-care (01) | DRG 788 ==
PROVIDERS: Obstetrics & Gynecology; Admitting Provider Obstetrics & Gynecology; PCP Physician Assistant; Referring Provider Obstetrics & Gynecology; Visit Provider Obstetrics & Gynecology
DX: O32.1XX0 Maternal care for breech presentation, not applicable or unspecified (principal); Z3A.40 40 weeks gestation of pregnancy; Z37.0 Single live birth; O77.0 Labor and delivery complicated by meconium in amniotic fluid; O69.81X0 Labor and delivery complicated by cord around neck, without compression, not applicable or unspecified
CPT/HCPCS: 59025; 59050; 84112; 85025; 85027; 85461; 86850; 86900; 86901; 90384; 99218; J7120; A4216; G0378; J2405; J2790

== ENCOUNTER → 2022-04-13 | Outpatient (CLI) | payer BC, SELFPAY ==
[2022-04-20 15:06] LABS: HPV APTIMA, High Risk Negative (Negative)
== END | disposition home or self-care (01) ==
LOC: LABSPEC 10:12
PROVIDERS: PCP Physician Assistant; Visit Provider Obstetrics & Gynecology
DX: Z12.4 Encounter for screening for malignant neoplasm of cervix (principal)
CPT/HCPCS: 87624; 88175; G0145

== ENCOUNTER → 2022-04-17 | Outpatient (CLI) | payer BC, SELFPAY ==
[2022-04-21 04:07] LABS: Dilute Prothrombin Time (dPT) 33.2 sec (0.0-47.6); Dilute Russell Viper Venom 32.4 sec (0.0-47.0); PTT-LA 36.6 sec (0.0-51.9); Thrombin Time 17.1 sec (0.0-23.0); dPT Confirm Ratio 1.01 Ratio (0.00-1.34)
[2022-04-23 14:18] LABS: Anti-Cardiolipin Ab, IgA, Qn < 9 APL U/mL (0-11); Anti-Cardiolipin Ab, IgG, Qn < 9 GPL U/mL (0-14); Anti-Cardiolipin Ab, IgM, Qn 10 MPL U/mL (0-12); Beta-2-Glycoprotein I IgA <9 (0-25); Beta-2-Glycoprotein I IgG <9 (0-20); Beta-2-Glycoprotein I IgM <9 (0-32); Interpretation Comment: (.)
== END | disposition home or self-care (01) ==
LOC: PAVLAB 08:38
PROVIDERS: PCP Physician Assistant; Referring Provider Obstetrics & Gynecology; Visit Provider Obstetrics & Gynecology
DX: N96 Recurrent pregnancy loss (principal)
CPT/HCPCS: 36415; 86146; 86147; 86850; 86900; 86901

== ENCOUNTER → 2022-07-08 | Outpatient (CLI) | payer BC, SELFPAY ==
[2022-07-08 10:09] LABS: hCG Titer Quant., Serum 142 mIU/mL (1-3)
== END | disposition home or self-care (01) ==
LOC: LAB 09:10
PROVIDERS: PCP Physician Assistant; Referring Provider Obstetrics & Gynecology; Visit Provider Obstetrics & Gynecology
DX: N96 Recurrent pregnancy loss (principal); N91.2 Amenorrhea, unspecified
CPT/HCPCS: 36415; 84702

== ENCOUNTER → 2022-07-10 | Outpatient (CLI) | payer BC, SELFPAY ==
[2022-07-10 10:07] LABS: hCG Titer Quant., Serum 476 mIU/mL (1-3)
== END | disposition home or self-care (01) ==
LOC: LAB 09:04
PROVIDERS: PCP Physician Assistant; Referring Provider Obstetrics & Gynecology; Visit Provider Obstetrics & Gynecology
DX: N96 Recurrent pregnancy loss (principal); N91.2 Amenorrhea, unspecified
CPT/HCPCS: 36415; 84702

== ENCOUNTER → 2022-07-20 | Outpatient (CLI) | payer BC, SELFPAY ==
--- NOTE | 2022-07-20 14:16 | US_ITS ---
EXAM: US , TRANSVAGINAL CLINICAL INDICATION: viability TECHNIQUE: Real-time transvaginal obstetrical ultrasound of the maternal pelvis and a first trimester with image documentation. Transvaginal imaging was used for better evaluation of the fetus and adnexa. This report was created using [employer] report generation technology. COMPARISON: None. FINDINGS: GESTATION: Gravid uterus measures 7.4 x 4.1 x 6.3 cm. Single intrauterine gestational sac. Single live intrauterine gestation. Cardiac activity is documented with heart rate of 111. Normal yolk sac. Main sonographic gestational age measures 6 weeks 0 days based on crown-rump length. Estimated date of delivery 03/15/2023. PLACENTA/AMNIOTIC FLUID: Large subchorionic hemorrhage measuring 2.5 x 1 x 2.9 cm. UTERUS/CERVIX: No myometrial mass. OVARIES: Right ovary is normal in size and echogenicity measuring 3 x 2.2 x 2.1 cm. No mass or dominant cyst. Left ovary is normal in size and echogenicity measuring 2.4 x 1.5 x 1.5 cm. No mass or dominant cyst. FREE FLUID: Moderate free fluid in the cul-de-sac. US/Transvaginal w/Preg US IMPRESSION: 1. Single live intrauterine gestation with EGA 6 weeks 0 days. 2. Large subchorionic hemorrhage. 3. Moderate free fluid. Electronically Signed: Janet Nye MD at 16:23 EST Reading Location ID and State: [id number] / Tel , Service support ,
[2022-07-20 16:06] LABS: hCG Titer Quant., Serum 9636 mIU/mL (1-3)
== END | disposition home or self-care (01) ==
PROVIDERS: PCP Physician Assistant; Referring Provider Obstetrics & Gynecology; Visit Provider Obstetrics & Gynecology
DX: O20.0 Threatened abortion (principal); Z3A.01 Less than 8 weeks gestation of pregnancy
CPT/HCPCS: 36415; 76817; 84702; 86850; 86870; 86900; 86901

== ENCOUNTER → 2022-07-22 | Outpatient (CLI) | payer BC, SELFPAY ==
[2022-07-22 17:32] LABS: hCG Titer Quant., Serum 12987 mIU/mL (1-3)
== END | disposition home or self-care (01) ==
LOC: LAB 15:23
PROVIDERS: PCP Physician Assistant; Referring Provider Obstetrics & Gynecology; Visit Provider Obstetrics & Gynecology
DX: O20.0 Threatened abortion (principal); Z3A.00 Weeks of gestation of pregnancy not specified
CPT/HCPCS: 36415; 84702

== ENCOUNTER → 2022-07-29 | Outpatient (CLI) | payer BC, SELFPAY | END | disposition home or self-care (01) | PROVIDERS: PCP Physician Assistant; Referring Provider Obstetrics & Gynecology; Visit Provider Obstetrics & Gynecology | DX: O26.899 Other specified pregnancy related conditions, unspecified trimester (principal); Z67.91 Unspecified blood type, Rh negative | CPT/HCPCS: 36415 ==

== ENCOUNTER → 2022-08-10 | Outpatient (CLI) | payer BC, SELFPAY ==
[2022-08-15 22:06] LABS: Chlamydia By Nucleic Acid AMP Negative (Negative)
[2022-08-15 22:24] LABS: Gonococcus By Nucleic Acid AMP Negative (Negative)
== END | disposition home or self-care (01) ==
LOC: LABSPEC 15:25
PROVIDERS: PCP Physician Assistant; Visit Provider Obstetrics & Gynecology
DX: Z34.91 Encounter for supervision of normal pregnancy, unspecified, first trimester (principal)
CPT/HCPCS: 87086; 87088; 87491; 87591

== ENCOUNTER → 2022-09-06 | Outpatient (CLI) | payer BC, SELFPAY ==
[2022-09-06 11:06] LABS: Absolute Lymphocyte Count 1.72 X10^3/uL (0.83-4.51); Absolute Neutrophil Count 5.6 X10^3/uL (2.0-7.7); Basophil# 0.03 X10^3/uL; Basophil% 0.4 % (0-1); Eosinophil# 0.05 X10^3/uL; Eosinophils% 0.6 % (0-5); Hematocrit 35.8 % (37-47); Hemoglobin 12.2 g/dL (12.0-15.0); Lymphocyte # 1.72 X10^3/ul (0.83-4.51); Lymphocyte % 21.7 % (19-41); Mean Corp Hgb Conc 34.1 g/dL (32-36); Mean Corpuscular Hgb 31.4 pg (27.0-32.0); Mean Corpuscular Volume 92.3 fL (81-99); Mean Platelet Vol. 9.6 fl (6.2-12.0); Monocyte# 0.46 X10^3/uL; Monocyte% 5.8 % (0-10); NRBC Flagged by Analyzer 0 % (0-5); Neutrophil # 5.62 X10^3/uL (2.7-7.7); Neutrophil % 71.1 % (47-70); Platelet Count 225 K/mm3 (150-450); RBC Distribution Width SD 40.6 fl (35.1-43.9); Red Blood Count 3.88 M/mm3 (4.2-5.4); White Blood Count 7.9 K/mm3 (4.4-11.0)
[2022-09-06 12:09] LABS: HIV - WCH Non-Reactive (Nonreactive); Hepatitis B Surface Antigen Non-Reactive (Nonreactive); Hepatitis C Antibody Non-Reactive (Nonreactive); Rubella IgG Reactive (Nonreactive); Syphilis Antibodies Non-reactive
== END | disposition home or self-care (01) ==
LOC: PAVLAB 10:51
PROVIDERS: PCP Physician Assistant; Referring Provider Obstetrics & Gynecology; Visit Provider Obstetrics & Gynecology
DX: Z34.91 Encounter for supervision of normal pregnancy, unspecified, first trimester (principal)
CPT/HCPCS: 36415; 85025; 86703; 86762; 86780; 86803; 86850; 86870; 86900; 86901; 87340

== ENCOUNTER → 2022-10-30 | Outpatient (CLI) | payer BC, SELFPAY | END | disposition home or self-care (01) | PROVIDERS: Obstetrics & Gynecology; PCP Physician Assistant; Referring Provider Obstetrics & Gynecology; Visit Provider Obstetrics & Gynecology | DX: O26.899 Other specified pregnancy related conditions, unspecified trimester (principal); O36.0190 Maternal care for anti-D [Rh] antibodies, unspecified trimester, not applicable or unspecified; Z67.91 Unspecified blood type, Rh negative | CPT/HCPCS: 36415 ==

== ENCOUNTER → 2022-12-26 | Outpatient (CLI) | payer BC, SELFPAY ==
[2022-12-26 09:21] LABS: Absolute Lymphocyte Count 1.61 X10^3/uL (0.83-4.51); Absolute Neutrophil Count 6.3 X10^3/uL (2.0-7.7); Basophil# 0.02 X10^3/uL; Basophil% 0.2 % (0-1); Eosinophil# 0.02 X10^3/uL; Eosinophils% 0.2 % (0-5); Hematocrit 34.9 % (37-47); Hemoglobin 11.9 g/dL (12.0-15.0); Lymphocyte # 1.61 X10^3/ul (0.83-4.51); Lymphocyte % 19.2 % (19-41); Mean Corp Hgb Conc 34.1 g/dL (32-36); Mean Corpuscular Hgb 33.1 pg (27.0-32.0); Mean Corpuscular Volume 96.9 fL (81-99); Mean Platelet Vol. 8.6 fl (6.2-12.0); Monocyte# 0.44 X10^3/uL; Monocyte% 5.2 % (0-10); NRBC Flagged by Analyzer 0 % (0-5); Neutrophil # 6.26 X10^3/uL (2.7-7.7); Neutrophil % 74.6 % (47-70); Platelet Count 207 K/mm3 (150-450); RBC Distribution Width CV 11.9 % (11.6-14.6); RBC Distribution Width SD 42.5 fl (35.1-43.9); White Blood Count 8.4 K/mm3 (4.4-11.0)
[2022-12-26 09:42] LABS: Glucose Challenge Gest 1H 50g 96 mg/dL (70-140)
[2022-12-26 10:13] LABS: HIV - WCH Non-Reactive (Nonreactive); Syphilis Antibodies Non-reactive
[2022-12-26 11:38] LABS: NATERA MAILED SPECIMEN
== END | disposition home or self-care (01) ==
PROVIDERS: Nurse Practitioner Women's Health; PCP Physician Assistant; Referring Provider Obstetrics & Gynecology; Visit Provider Obstetrics & Gynecology
DX: Z34.90 Encounter for supervision of normal pregnancy, unspecified, unspecified trimester (principal)
CPT/HCPCS: 36415; 82950; 85025; 86703; 86780; 86900; 86901

== ENCOUNTER → 2023-01-24 | Outpatient (CLI) | payer BC, SELFPAY | END | disposition home or self-care (01) | PROVIDERS: Advanced Practice Midwife; PCP Physician Assistant; Referring Provider Obstetrics & Gynecology; Visit Provider Obstetrics & Gynecology | DX: O36.0190 Maternal care for anti-D [Rh] antibodies, unspecified trimester, not applicable or unspecified (principal); Z3A.00 Weeks of gestation of pregnancy not specified | CPT/HCPCS: 36415 ==

== ENCOUNTER → 2023-02-23 | Outpatient (CLI) | payer BC, SELFPAY | END | disposition home or self-care (01) | LOC: LABSPEC 16:52 | PROVIDERS: Referring Provider Obstetrics & Gynecology; Visit Provider Obstetrics & Gynecology | DX: Z34.90 Encounter for supervision of normal pregnancy, unspecified, unspecified trimester (principal) | CPT/HCPCS: 87081 ==

== ENCOUNTER → 2023-03-05 | Outpatient (CLI) | payer BC, SELFPAY ==
--- NOTE | 2023-03-05 14:21 | US_ITS ---
STUDY: SECOND AND THIRD TRIMESTER OBSTETRICAL ULTRASOUND - LIMITED REASON FOR EXAM: Female, 32 years old growth- size lesser than dates LMP: Unknown. A due date of March 18, 2023 is given. PRIOR ULTRASOUND: Pelvic ultrasound July 20, 2022 TECHNIQUE: Routine real-time obstetrical sonogram was performed. TECHNICAL QUALITY: Adequate. FINDINGS: There is a single intrauterine fetus. The fetus is in a cephalic presentation. There is demonstrated cardiac activity with a heart rate of 145 bpm. There is a normal amniotic fluid volume. The largest amniotic fluid pocket measures 3.4 cm. The amniotic fluid index (REBEL) is 7.3 cm. The placenta is fundal in location. There are Grade 2 placental changes. The cervix is not visualized. BIOMETRY: BPD: 9.5 cm: 38 weeks, 4 days HC: 33.4 cm: 38 weeks, 1 days AC: 30.7 cm: 34 weeks, 5 days FL: 7.4 cm: 37 weeks, 5 days Age by given due date: 38 weeks, 1 days. Given due date: March 18, 2023. age by prior US: 38 weeks, 3 days. YAZMIN by prior US: March 16, 2023. age by current US: 37 weeks, 2 days. YAZMIN by current US: March 24, 2023. Estimated weight: 2909 grams, +/- 436 grams, 21 percentile. US/OB Limited With Biometrics IMPRESSION: 1. Single living intrauterine fetus in cephalic presentation showing near normal interval growth since previous study. 2. Estimated weight is 2909 g. 3. Amniotic fluid index is 7.3 cm. 4. Grade 2 fundal placenta is not low-lying. 5. The cervix is obscured. Electronically Signed: Valdemar Lares MD at 15:39 EDT Reading Location ID and State: [id number] / Unknown , Service support ,
== END | disposition home or self-care (01) ==
LOC: OPUS 14:20
PROVIDERS: PCP Physician Assistant; Referring Provider Advanced Practice Midwife; Visit Provider Advanced Practice Midwife
DX: O26.849 Uterine size-date discrepancy, unspecified trimester (principal); Z3A.00 Weeks of gestation of pregnancy not specified
CPT/HCPCS: 76816

== ENCOUNTER → 2023-03-14 | Outpatient (CLI) | payer BC, SELFPAY ==
--- NOTE | 2023-03-14 07:55 | US_ITS ---
STUDY: OBSTETRICAL ULTRASOUND - BIOPHYSICAL PROFILE REASON FOR EXAM: Female, 32 years old well being LMP: June 11, 2022. PRIOR ULTRASOUND: Comparison is made with prior study dated March 05, 2023. TECHNIQUE: Transabdominal TECHNICAL QUALITY: Adequate. FINDINGS: There is a single intrauterine fetus. The fetus is in a cephalic presentation. There is demonstrated cardiac activity with a heart rate of 126 bpm. There is a normal amniotic fluid volume. The largest amniotic fluid pocket measures 4.2 cm. The amniotic fluid index (REBEL) is 7.7 cm. The placenta is anterior in location and is not low lying. There are Grade 2 placental changes. Age by LMP: 39 weeks, 3 days. YAZMIN by LMP: March 18, 2023. BIOPHYSICAL PROFILE: Breathing Movements (FBM): 2 Gross Body Movements (GBM): 2 Tone (FT): 2 Amniotic Fluid Volume (AFV): 2 TOTAL SCORE: 8 / 8 US/Biophysical Prof W/O Non Stres IMPRESSION: Normal biophysical profile of 8/8. Electronically Signed: Tonny Plasencia MD at 9:42 EDT ,
== END | disposition home or self-care (01) ==
PROVIDERS: PCP Physician Assistant; Referring Provider Advanced Practice Midwife; Visit Provider Advanced Practice Midwife
DX: O26.849 Uterine size-date discrepancy, unspecified trimester (principal); Z3A.00 Weeks of gestation of pregnancy not specified
CPT/HCPCS: 76819

== ENCOUNTER 2023-03-16 20:45 | Inpatient (IN) | payer BC, SELFPAY ==
[2023-03-16] VITALS (20 sets, daily range): BP systolic 127–151; BP diastolic 59–99; PULSE 74–107; TEMP 36.2–37.1; O2SAT 98–100; BMI 25.2
[2023-03-16] MEDS: Oxytocin 15 Units/NS 250ml 15 UNITS/250 ML IV.SOLN 83 UNITS IV (21:16)
[2023-03-16] MEDS: Oxytocin 10 UNITS/ML Vial IM (21:16)
[2023-03-16 21:27] LABS: Absolute Lymphocyte Count 2.61 X10^3/uL (0.83-4.51); Basophil# 0.04 X10^3/uL; Basophil% 0.2 % (0-1); Eosinophil# 0.03 X10^3/uL; Eosinophils% 0.2 % (0-5); Hematocrit 37.2 % (37-47); Hemoglobin 13.2 g/dL (12.0-15.0); Lymphocyte # 2.61 X10^3/ul (0.83-4.51); Lymphocyte % 15.8 % (19-41); Mean Corp Hgb Conc 35.5 g/dL (32-36); Mean Corpuscular Hgb 33.9 pg (27.0-32.0); Mean Corpuscular Volume 95.6 fL (81-99); Mean Platelet Vol. 10.1 fl (6.2-12.0); Monocyte# 0.75 X10^3/uL; Monocyte% 4.6 % (0-10); NRBC Flagged by Analyzer 0 % (0-5); Neutrophil # 12.97 X10^3/uL (2.7-7.7); Neutrophil % 78.8 % (47-70); Platelet Count 287 K/mm3 (150-450); RBC Distribution Width CV 11.9 % (11.6-14.6); RBC Distribution Width SD 41.2 fl (35.1-43.9); Red Blood Count 3.89 M/mm3 (4.2-5.4); White Blood Count 16.5 K/mm3 (4.4-11.0)
[2023-03-16] MEDS: Morphine 4 MG/ML Syringe IV (21:31)
[2023-03-16] MEDS: Lactated Ringers 1,000 ML 50 ML IV (21:50)
[2023-03-16] MEDS: 0.9% Saline Lock 10 ML Syringe IV (21:51)
[2023-03-16] MEDS: Lidocaine 1% (20 ml mdv) 20 ML Vial INFILT (21:52)
--- NOTE | 2023-03-16 22:03 | PCM.HP.OB ---
HPI - General General Date of Admission: 03/16/23 HPI Narrative ANAHI CUEVAS, is a 32 @ 39 weeks 5 days who presents to L&D in active labor. She was found to be 6-7 cm dilated and membranes ruptured with light meconium stained fluid. She has a history of vaginal followed by a section with her second due to breech presentation. She would like to . Maternal Data Information YAZMIN Calculator Estimated Delivery Date Method Current WG Current Estimate 03/18/23 LMP (Certain) 39w 5d PFSH PFS Medical History 40 weeks gestation of Spontaneous rupture of amniotic membranes Home Medications vits,calcium no.78-iron fumarate-folic acid 29 mg-1 mg tablet 1 tab PO DAILY 12/11/19 [History Last Taken 12/10/19 22:00 1 tab] Allergy/AdvReac Type Severity Reaction Status Date / Time No Known Allergies Allergy Verified 03/09/23 09:23 Family History (Updated 03/16/23 @ 22:13 by Sherlyn Centeno) Father Asthma Social History adopted: No household members: spouse and children housing: house number of children: 2 current occupational status: unemployed pets and animals: No history of recent travel: Yes details: [place] in January out of state: Yes out of country: No sexually active: Yes Smoking Status: Never smoker alcohol intake: never substance use type: does not use well-balanced diet: daily or most days caffeine: No eating out: rarely or never during the past year weight has: remained stable what type of physical activity do you participate in: walking frequency: 1-2 times per week duration: 15-30 minutes/day nina/presybeterian: Muslim seatbelt use: always do you feel safe at home: Yes additional social history: Elijah - Sales at [employer] History 4 Elective abortions Hx Para 2 Spontaneous abortions 2 Hx # Term Pregnancies Ectopic pregnancies Hx # Pregnancies Multiple births # of living children 2 Past Pregnancies Del. Date Name GA/Weeks Outcome Route Bth Weight Gen Labor Lgth Anesthesia Del Locatn Provider FOB Unknown 01/06/16 Cassie Unknown 12/11/19 Nicole 40 live - full term 7# Female 7 hours spinal [facility] Dr. Tadeo Nava 05/20/18 10 spontaneous 03/20/22 10 spontaneous Delivery Date: Last Updated by: Billie Summers Adopted daughter Delivery Date: Last Updated by: Billie Summers C section Breech Visit Details Expected Delivery Route/Plan TOLAC discussed plan exp management until 41 weeks. patient counseled regarding risks/benefits of trial of labor versus repeat . ACOG/uptodate education given to patient. [] % likelihood of success per calculator TOLAC consent form signed: [] Plans Covid status: vaccinated and 1 booster Flu vaccine: declines Tdap vaccine: given Rhogam: given 12/26 LARC form signed: 01/09 movement and labor precautions reviewed. Problem list reviewed and updated with the most current plan of care details and appropriate orders placed. Relevant counseling for the gestational age provided. Continue routine care and follow up unless otherwise noted in visit notes/problem list details OB Flowsheet Initial Weight: Not Recorded Date <del>?</del> EGA Weight BP Urine Prot <del>?</del> Glucose FHR FuHt Pres Dilation <del>?</del> Effaced St Visit Note 08/10/22 <del>?</del> 8w 4d 132 lb 138/84 <del>?</del> 189 <del>?</del> JV- single live IUP measuring 8 weeks 3 days and consistent with LMP. 09/06/22 <del>?</del> 12w 3d 131 lb 4 oz 130/81 Negative <del>?</del> Negative 169 <del>?</del> JV- bedside scan for heart tones. pt declines nipt. will need labs however. 10/04/22 <del>?</del> 16w 3d 134 lb 4 oz 118/72 Negative <del>?</del> Negative 158 <del>?</del> MH-No Vb, cramping. Feels well. MFM US is 10/19/22 10/30/22 <del>?</del> 20w 1d 138 lb 2 oz 126/80 Negative <del>?</del> Negative 147 <del>?</del> LC- no vb/cramping. obtaining ultrasound f/u on . getting titers today. 11/28/22 <del>?</del> 24w 2d 142 lb 4 oz 130/74 Negative <del>?</del> Negative 142 <del>?</del> MH-No VB, LOF. Good FM. Denies concerns 12/26/22 <del>?</del> 28w 2d 145 lb 5 oz 133/72 Negative <del>?</del> Negative 140 28 <del>?</del> SM- no vb lof good fm no regular ctx tdap and rhogam today, FOB learned of metabolic genetic disease in family, discussed and plan extended carrier panel today. 01/09/23 <del>?</del> 30w 2d 148 lb 123/69 Negative <del>?</del> Negative 135 30 <del>?</del> KW- +fm. no lof/vb/ctx. Larc done. Horizon reviewed. neg. 01/23/23 <del>?</del> 32w 2d 148 lb 8 oz 113/77 Negative <del>?</del> Negative 130 32 <del>?</del> KW-+FM. no lof/vb/ctx. no concerns today. KW-+FM. no lof/vb/ctx. no concerns today. Antibodies not drawn with 28 week labs. discussed with JV 02/09/23 <del>?</del> 34w 5d 152 lb 8 oz 130/81 Negative <del>?</del> Negative 134 34 <del>?</del> JV- no lof, vaginal bleeding, or dec fm. no headaches or complaints. no protein in urine. 02/23/23 <del>?</del> 36w 5d 154 lb 8 oz 120/75 Negative <del>?</del> Negative 140 34 Cephalic <del>?</del> JV- measuring 2 cm off, consider growth scan next visit if still measuring low. no lof, vaginal bleeding, or dec fm. vtx on ultrasound at bedside 03/02/23 <del>?</del> 37w 5d 152 lb 4 oz 132/81 Negative <del>?</del> Negative 135 35 <del>?</del> KW-+FM. no lof/vb/ctx. Growth US ordered. S<D. 03/09/23 <del>?</del> 38w 5d 153 lb 2 oz 110/72 Trace <del>?</del> Negative 130 35 <del>?</del> KW-+FM. no lof/vb/ctx. growth 21%. REBEL 7.3. BPP next week to check REBEL. Labor precautions IOL/CS scheduling sent to workload 03/16/23 <del>?</del> 39w 5d 151 lb 128/80 Trace A <del>?</del> Negative 135 37 Cephalic 4 <del>?</del> 90 -1 KW-+fm, no lof/vb/regular contractions. labor precautions. membrane sweep done. ROS Constitutional Constitutional: Denies change in weight, fatigue, fever(s), headache(s), poor appetite or weakness Eyes Eyes: Denies blurry vision, change in vision, seeing flashes or spots in vision ENT HEENT: Denies dizziness, headache(s), loss taste/smell or sore throat Cardiovascular Cardiovascular: Denies chest pain, dizziness, dyspnea, irregular heart rhythm, leg edema, palpitations, rapid heart rate or vomiting Respiratory/Chest Respiratory/Chest: Denies chest tightness, cough, dyspnea or breast pain Gastrointestinal Gastrointestinal: Denies abdominal pain, anorexia, constipation, cramping, diarrhea, hemorrhoids, vomiting or weight changes Genitourinary Genitourinary: Denies dysuria, flank pain, genital lesions, genital pain, urinary frequency or urinary urgency Musculoskeletal Musculoskeletal: Denies back pain, difficulty walking, joint pain, limited range of motion, muscle cramps or numbness Integumentary Integumentary: Denies lesions or unusual bruising Neurologic Neurologic: Denies abnormal movements, abnormal speech, dizziness, numbness, seizure-like activity or syncope Psychiatric Psychiatric: Denies anxiety, behavioral changes, change in appetite, change in libido, cognitive impairment, confusion, depression, difficulty concentrating, hallucinations or suicidal thoughts Endocrine Endocrinology: Denies excessive sweating, polydipsia or polyuria Hematologic/Lymphatic Hematologic/Lymphatic: Denies easy bleeding, easy bruising or lymphadenopathy Allergic/Immunologic Allergic/Immunologic: Denies itchy eyes, lip swelling, seasonal rhinorrhea, rhinitis, throat swelling, tongue swelling, eczemia, wheezing or asthma Vital Signs Vital Signs Vital Signs: 03/16/23 20:48 03/16/23 20:49 03/16/23 20:49 Temperature 97.2 F L Pulse Rate 107 H Blood Pressure 137/99 H BP Systolic 137 BP Diastolic 99 03/16/23 21:41 03/16/23 21:41 03/16/23 21:41 Temperature 98.8 F Pulse Rate 92 Blood Pressure 127/73 H BP Systolic 127 BP Diastolic 73 03/16/23 21:56 03/16/23 21:56 Temperature Pulse Rate 88 Blood Pressure 127/74 H BP Systolic 127 BP Diastolic 74 Weight Weight: 156 lb Body Mass Index (BMI) 25.2 Physical Exam Const alert, oriented x3, no apparent distress and healthy appearing General Appearance: cooperative; Negative for anxious HEENT normocephalic Face and Sinus: normal facial exam Eyes EOMs intact bilaterally and no scleral icterus General Eye: normal appearance of both eyes Neck full ROM and supple Lymph Lymphatic: no lymphadenopathy noted Chest Chest: abnormal inspection of the chest Resp normal respiratory effort Effort and Inspection: able to speak in complete sentences Cardio regular rate GI soft to palpation and non-tender Inspection: gravid Palpation: soft; Negative for tender external exam normal Amniotic Fluid: ROM+plus Back/Spine no CVA tenderness Extremity normal to inspection, full ROM and no clubbing, cyanosis or edema General Extremity: Negative for calf tenderness or edema Skin Lesions: no lesions Rashes: no rashes Psych mental status grossly normal Labs Labs Labs: Blood Type A NEGATIVE Antibody Screen POSITIVE H Hct 37.2 % (37-47) Hgb 13.2 g/dL (12.0-15.0) Obstetrics US Syphilis Total Ab Non-reactive VZV IgG Antibody < 135 index (Immune >165) L Rubella IgG Antibody Reactive (Nonreactive) Hep Bs Antigen Non-Reactive (Nonreactive) Chlamydia DNA (JASON) Negative (Negative) Neisseria gonorrhoeae DNA (JASON) Negative (Negative) HIV 1&2 Antibody Non-Reactive (Nonreactive) Glucose 1 Hr 50 gm 96 mg/dL (70-140) Rhogam given: Yes Miscellaneous Test Assessment & Plan (1) Uterine size date discrepancy: COMMENT: growth at 21% (2) Anti-D antibodies present: COMMENT: 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 : Elijah (7) : QUALIFIERS: Weeks of gestation: 38 weeks Qualified Code(s): Z3A.38 - 38 weeks gestation of COMMENT: GBS negative. anatomy NL. carrier screening neg. 274/274. pt declines unknown if previous exposure to varicella- add titers during NOB labs (8) History of recurrent miscarriages: COMMENT: APL panel negative. declined karyotype, horizon screen, and HSG. PLAN: Plan Patient presents IAL, plan expectant management for , pitocin/AROM PRN if needed. Pain management: nitrous. GBS negative . Management of any complications: none I have reviewed the [facility] and made any clinically relevant updates.
--- NOTE | 2023-03-16 22:15 | EX.PCM.OBRPT ---
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 : Elijah (7) : QUALIFIERS: Weeks of gestation: 38 weeks Qualified Code(s): Z3A.38 - 38 weeks gestation of COMMENT: GBS negative. anatomy NL. carrier screening neg. 274/274. pt declines unknown if previous exposure to varicella- add titers during NOB labs (8) History of recurrent miscarriages: COMMENT: APL panel negative. declined karyotype, horizon screen, and HSG. Maternal Data Information YAZMIN Calculator Estimated Delivery Date Method Current WG Current Estimate 03/18/23 LMP (Certain) 39w 5d Final YAZMIN: 03/18/23 Final YAZMIN Source: LMP Gestational age: 39 weeks 5 days Vaginal Delivery Maternal Presentation Maternal Presentation: Active Labor Operative Information Date of Procedure: 03/16/23 Pre-Operative Diagnosis: 32 y/o @ 39 weeks 5 days, srom and active labor, history of prior , desires Post-Operative Diagnosis: 32 y/o @ 39 weeks 5 days, srom and active labor, history of prior , desires Surgery / Procedure Performed: Vacuum Assisted Vaginal Delivery Type of Anesthesia: None Estimated Blood Loss: 300cc Findings Description of Procedure: Details of delivery: This is a 32 year old woman who was admitted to labor and delivery for active labor, desires TOLAC. The decision was made to perform a vacuum extraction due to heart rate down in the 60's-80's x 5 minutes. The risk benefits and alternatives of the procedure were discussed with the patient and verbal consent was obtained. The infant was noted to be at a +2 station, the cervix was completely dilated. The infant's head was noted to be in the right occiput anterior presentation. The vacuum was placed in the correct placement in front of the posterior fontanelle. This was confirmed digitally. With the patient's next contraction, the vacuum was inflated and a gentle downward pressure was used to assist with bringing the baby's head to a +3 station. With 1 pull and 0 pop offs. The head was delivered atraumatically. No nuchal cord was noted. The anterior shoulder followed by the posterior shoulder were delivered without difficulty. The infant was handed off to the patient's chest. The was found to be vigorous and crying and moving of all 4 extremities. The mouth and nares were bulb suctioned. After 60 second delay the cord was clamped and cut and the was handed off to the awaiting nurses for routine assessment. The placenta was delivered with gentle traction and uterine massage. Inspection of the vagina cervix and perineum was performed. There were no lacerations to the vagina or to the cervix. The peritoneum was found to have a long 2nd degree perineal laceration. The perineal laceration was closed using a 2-0 Vicryl in the usual sterile fashion. The patient tolerated the procedure well sponge lap and needle counts were correct x2 and she is now recovering in stable condition. baby boy Rik- scores 8/9 Presentation: Vertex Amniotic Fluid Description: Lightly stained meconium Placental Delivery Description: Spontaneous Placenta Disposition: [facility] Cord Vessel Description: 3 Vessels Cord Entanglement: None Cord Gases: ABG and VBG Infant A Gender: Male (1 minute): 8 (5 minute): 9 Delayed Cord Clamping: Yes Post Vaginal Delivery Medications Given After Delivery: IV Pitocin and IM Pitocin Episiotomy Description: None Laceration: 2nd degree Complication Complications: None Multi Select Codes Urinary/Genital Urinary/Genital CPT Codes: 03471 delivery [facility]
--- NOTE | 2023-03-16 22:21 | DCINST_ITS ---
Discharge Instructions Diet Discharge Diet: No restrictions Activity Discharge Activity: Return to Normal Activity, May Not Drive (while taking narcotic pain medications.) and May Shower May resume sexual activity in: 4-6 weeks Dressing / Incision Call your doctor if your incision/area has: Continuous Slow Oozing, Sudden Increased Bleeding, Increased Pain/ Swelling, Increased Redness and Foul Smelling Discharge Follow Up Care Please Follow Up With: Jazmine Gee, DO When: Call [phone] to make an appointment with your doctor in 6 weeks. If you had elevated blood pressure or 4th degree laceration, you will need to be seen in 2 weeks. Test Results: Test results from this visit will be discussed in further detail at your follow- up appointment, if applicable. Discharge Plan Admission Admit Date/Time: 03/16/23 20:45 Attending Provider: Jazmine Gee Primary Care Provider: Pinky Pabon Discharge Orders/Prescriptions Prescriptions: No Action vit,[id number] 1 TABLET tablet 1 tab PO DAILY Referrals / Follow Up: Pinky Pabon PA [Primary Care Provider] -
[2023-03-16 22:49] LABS: Syphilis Antibodies Non-reactive
[2023-03-17] MEDS: Acetaminophen 500 MG Tablet 1000 MG PO ×2 (00:13→07:04)
[2023-03-17 03:45] VITALS: BP 125/61; PULSE 81; RESP 14; TEMP 36.4
[2023-03-17 08:05] VITALS: BP 117/84; PULSE 84; RESP 16; TEMP 37.1; O2SAT 98
--- NOTE | 2023-03-17 08:18 | PCM.PN.OB ---
Subjective Subjective Patient doing well without complaints. Tolerating PO. Ambulating and voiding without difficulty. Feeding well. Denies chest pain, shortness of breath, calf pain/swelling, fevers, chills, lightheadedness. Objective Data Objective Data Vital Signs: Vital Signs Temp Pulse Resp BP Pulse Ox O2 Del Method 98.8 F 84 16 117/84 H 98 Room Air 03/17/23 08:05 03/17/23 08:05 03/17/23 08:05 03/17/23 08:05 03/17/23 08:05 03/17/23 08:05 Oxygen Delivery Method Room Air Weight: 156 lb Body Mass Index (BMI) 25.2 Intake & Output: Intake and Output for Last 24 Hours 03/15/23 03/16/23 03/17/23 23:59 23:59 23:59 Intake Total 78.33 / 78.33 250 / 250 Output Total 300 / 300 Balance -221.67 / -221.67 250 / 250 Lab / Micro Data 03/16/23 21:00 Labs: Laboratory Results - last 24 hr 03/16/23 21:00: WBC 16.5 H, RBC 3.89 L, Hgb 13.2, Hct 37.2, MCV 95.6, MCH 33.9 H, MCHC 35.5, RDW Std Deviation 41.2, RDW Coeff of Annabella 11.9, Plt Count 287, MPV 10.1, Immature Gran % (Auto) 0.400, Neut % (Auto) 78.8 H, Lymph % (Auto) 15.8 L, [place] % (Auto) 4.6, Eos % (Auto) 0.2, Baso % (Auto) 0.2, Absolute Neuts (auto) 13.0 H, Absolute Lymphs (auto) 2.61, Nucleated RBC % 0, Syphilis Total Ab Non-reactive, Blood Type A NEGATIVE, Antibody Screen NEGATIVE 03/17/23 03:30: Screen NEGATIVE, Baby's Blood Type A POSITIVE, Baby's NAILA NEGATIVE Physical Exam Const alert and no apparent distress Resp normal respiratory effort and normal air movement GI normal to inspection, nondistended, normoactive bowel sounds GI Narrative: fundus firm below u. normal lochia. no clots Narrative: perineum well approximated. Extremity normal to inspection, no calf tenderness and no pedal edema Psych mental status grossly normal Assessment & Plan (1) Vacuum extraction, delivered, current hospitalization: PLAN: s/p PPD # 1 1. routine post delivery care 2. breast feeding- support given 3. rh positive 4. rubella immune (2) , delivered, current hospitalization:
[2023-03-17] MEDS: Naproxen 500 MG Tablet PO (12:43)
[2023-03-17 12:44] VITALS: BP 122/79; PULSE 78; RESP 16; TEMP 36.7; O2SAT 97
[2023-03-17 16:38] VITALS: BP 110/63; PULSE 72; RESP 16; TEMP 36.7; O2SAT 98
[2023-03-17 19:17] VITALS: BP 132/83; PULSE 69; RESP 16; TEMP 36.6; O2SAT 100
[2023-03-18 02:31] VITALS: BP 115/69; PULSE 81; RESP 16; TEMP 36.7; O2SAT 97
[2023-03-18] MEDS: Acetaminophen 500 MG Tablet 1000 MG PO (05:27)
[2023-03-18] MEDS: Benzocaine/Lanolin/Aloe Vera 1 SPRAY EACH TOPICAL (05:30)
[2023-03-18 07:28] VITALS: BP 124/77; PULSE 82; RESP 16; TEMP 36.3; O2SAT 98
--- NOTE | 2023-03-18 09:12 | PCM.PN.OB ---
Subjective Subjective Patient doing well without complaints. Tolerating PO. Ambulating and voiding without difficulty. Feeding well. Denies chest pain, shortness of breath, calf pain/swelling, fevers, chills, lightheadedness. Objective Data Objective Data Vital Signs: Vital Signs Temp Pulse Resp BP Pulse Ox O2 Del Method 97.3 F L 82 16 124/77 H 98 Room Air 03/18/23 07:28 03/18/23 07:28 03/18/23 07:28 03/18/23 07:28 03/18/23 07:28 03/18/23 07:28 Oxygen Delivery Method Room Air Weight: 156 lb Body Mass Index (BMI) 25.2 Intake & Output: Intake and Output for Last 24 Hours 03/16/23 03/17/23 03/18/23 23:59 23:59 23:59 Intake Total 78.33 / 78.33 250 / 250 Output Total 300 / 300 Balance -221.67 / -221.67 250 / 250 Lab / Micro Data 03/16/23 21:00 Physical Exam Const alert and no apparent distress Resp normal respiratory effort and normal air movement GI normal to inspection, nondistended, normoactive bowel sounds GI Narrative: fundus firm below u. normal lochia. no clots Narrative: perineum well approximated. Extremity normal to inspection, no calf tenderness and no pedal edema Psych mental status grossly normal Assessment & Plan (1) , delivered, current hospitalization: PLAN: s/p PPD # 2 1. routine post delivery care 2. breast feeding- support given 3. rh positive 4. rubella immune 5. d/c home today (2) Vacuum extraction, delivered, current hospitalization: (3) Rh negative status during : COMMENT: Rhogam given 07/20/22, 12/26 PLAN: if baby if positive rhogam to pt per protocol
== END 2023-03-18 10:00 | disposition home or self-care (01) | DRG 807 ==
LOC: WPOUT 20:50 → WP 20:50
PROVIDERS: Admitting Provider Obstetrics & Gynecology; PCP Physician Assistant; Visit Provider Obstetrics & Gynecology
DX: O76 Abnormality in fetal heart rate and rhythm complicating labor and delivery (principal); Z37.0 Single live birth; O26.23 Pregnancy care for patient with recurrent pregnancy loss, third trimester; O34.211 Maternal care for low transverse scar from previous cesarean delivery; O26.843 Uterine size-date discrepancy, third trimester; O77.0 Labor and delivery complicated by meconium in amniotic fluid; O70.1 Second degree perineal laceration during delivery; O42.92 Full-term premature rupture of membranes, unspecified as to length of time between rupture and onset of labor; O26.893 Other specified pregnancy related conditions, third trimester; Z67.11 Type A blood, Rh negative; Z3A.39 39 weeks gestation of pregnancy; Z87.59 Personal history of other complications of pregnancy, childbirth and the puerperium; Z83.49 Family history of other endocrine, nutritional and metabolic diseases
CPT/HCPCS: 59025; 59050; 85025; 85461; 86780; 86850; 86900; 86901; 99221; J7120; A4216; G0378; J2790